=== PATIENT | male | born 1955 | race Caucasian/White ===

== ENCOUNTER 2018-07-25 15:08 | Inpatient (IN) ==
[2018-07-25 14:20] LABS: Basophils # 0.1 10*3/uL (0.0-0.2); Basophils % 0.3 % (0.0-0.8); Eosinophils # 0.1 10*3/uL (0.0-0.87); Eosinophils % 0.4 % (0.00-10.9); Hematocrit 40.1 VOL% (42.0-52.0); Hemoglobin 12.7 GM/DL (14.0-18.0); Immature Granulocytes % 1.7 %; Immature Granulocytes Absolute 0.34 #; Lymphocytes # 2.7 10*3/uL (1.4-4.0); Lymphocytes % 13.1 % (21.2-54.2); Mean Corpuscular HGB Conc 31.7 GM/DL (32-36); Mean Corpuscular Hemoglobin 31 PG (27-34); Mean Corpuscular Volume 96.2 FL (87-102); Mean Platelet Volume 11.5 FL (9.6-12.0); Monocytes # 1.8 10*3/uL (0.11-0.8); Monocytes % 8.9 % (1.7-12.7); Neutrophils # 15.4 10*3/uL (1.4-7.4); Neutrophils % 75.6 % (38.7-73.9); Platelet Count 236 T/CUMM (130-400); Red Blood Count 4.17 MC/CUMM (3.8-5.5); Red Cell Distribution Width 13.2 % (9.3-17.3); White Blood Count 20.4 T/CUMM (4-12)
[2018-07-25] MEDS: NOREPINEPHRINE 4 MG in SODIUM CHLORIDE 0.9% 242 ML IV PRN (14:30)
[2018-07-25 14:44] LABS: Albumin 2.3 G/DL (3.4-5.0); Bilirubin,Total 1.4 MG/DL (0.2-1.0); CKMB % 4.3 %; Calcium 7.9 MG/DL (8.5-10.1); Osmolality,Calculated 281.8 MOS/KG (273-304); Thyroid Stimulating Hormone 3.94 uIU/ml (0.358-3.74)
[~2018-07-25 15:08] MED LIST: ACETAMINOPHEN 325 MG TABLET PO PRN; ALUMINUM/MAGNES/SIMETH MAX STR 30 ML UDCUP PO PRN; BISACODYL 5 MG TABLET PO PRN; BIVALIRUDIN 250 MG VIAL IV ONE; D5W IV ONE; DOCUSATE SODIUM 100 MG CAPSULE PO PRN; HEPARIN 25000 UNIT/500 ML IV ONE; LIDOCAINE 1% 20 ML VIAL ONE; MAGNESIUM SULF RIDER 2 GM in PREMIX 1 EACH IV PRN; MAGNESIUM SULF RIDER 4 GM in PREMIX 1 EACH IV PRN; MIDAZOLAM 2 MG/2 ML VIAL ONE; NICOTINE 21 MG/24 HR PATCH TRANSDERM PRN; NOREPINEPHRINE 4 MG/4 ML VIAL IV ONE; ONDANSETRON 4 MG/2 ML VIAL IV PRN; POTASSIUM CHLORIDE 20 MEQ TABLET PO PRN; SODIUM BICARBONATE 50 MEQ/50 ML VIAL IV ONE; ZALEPLON 5 MG CAPSULE PO PRN; diphenhydrAMINE CAP 25 MG CAPSULE PO PRN; fentaNYL 100 MCG/2 ML VIAL ONE; guaiFENesin/DM ER 600-30 MG TABLET PO PRN
[2018-07-25 16:58] LABS: Lymphocytes 14 % (20-55); Segmented Neutrophils 82 % (50-85); Total Cells Counted 100
[2018-07-25 16:59] LABS: Platelet Estimate Normal
[2018-07-25 17:00] LABS: Polychromasia Slight
[2018-07-25] MEDS: PANTOPRAZOLE 40 MG TABLET PO SCH (17:10)
[2018-07-25] MEDS: PIPERACILLIN/TAZOBACTAM 3,375 MG in SODIUM CHLORIDE 0.9% 100 ML IV SCH (17:32)
[2018-07-25] MEDS: ENOXAPARIN 40 MG/0.4 ML SYRINGE SUBCUT SCH (17:32)
[2018-07-25 18:10] LABS: CKMB % 4.8 %
[2018-07-25 18:16] LABS: Troponin I 13.4 NG/ML (0.00-0.045)
[2018-07-25 20:25] LABS: CKMB % 4.8 %
[2018-07-25 20:29] LABS: Troponin I 12.6 NG/ML (0.00-0.045)
[2018-07-25] MEDS ORDERED: SODIUM CHLORIDE 0.9% 1,000 ML IV SCH (20:45)
[2018-07-25] MEDS: ATORVASTATIN 40 MG TABLET PO SCH (21:32)
[2018-07-25] MEDS: VANCOMYCIN INJ 1,000 MG in SODIUM CHLORIDE 0.9% 250 ML IV SCH (21:32)
[2018-07-25] MEDS: MORPHINE 4 MG/1 ML VIAL IV PRN (22:31)
[2018-07-25 22:32] LABS: Apearance,Urine Slightly Hazy (Clear); Bilirubin,Urine Negative (Negative); Blood, Urine Negative (Negative); Glucose,Urine (UA) 50 mg/dL (Negative); Ketones,Urine 5 mg/dL (Negative); Nitrite,Urine Negative (Negative); Protein,Urine 100 MG/DL; RBC,Urine 76 /HPF (0-4); Sperm,Urine Few /HPF (Negative); Squamous Epithelial Cell,Urine Occasional /HPF (0-10); Urine Color Amber (Yellow); Urine Specific Gravity > 1.060 (1.001-1.035)
[2018-07-25 22:58] LABS: Barbiturates Screen,Urine Negative (Negative); Benzodiazepines Screen,Urine Negative (Negative); Cannabinoid Screen,Urine Negative (Negative); Opiate Screen,Urine Negative (Negative); Phencyclidine Screen,Urine Negative (Negative)
[2018-07-26] MEDS ORDERED: NITROGLYCERIN SL 0.4 MG TABLET SL ONE ×2 (00:02→00:04)
[2018-07-26] MEDS ORDERED: FUROSEMIDE 40 MG/4 ML VIAL IV ONE ×2 (00:02→01:13)
[2018-07-26] MEDS ORDERED: FUROSEMIDE 100 MG/10 ML VIAL ONE (00:04)
[2018-07-26 00:39] LABS: ABG Base Excess -2.5 MMOL/L (-2.5-2.5); ABG HCO3 22.3 MMOL/L (20-26); ABG Oxygen Saturation 94.9 % (95-100); ABG PH 7.443 (7.35-7.45); ABG PO2 74.6 MM HG (80-95)
[2018-07-26] MEDS: PIPERACILLIN/TAZOBACTAM 3,375 MG in SODIUM CHLORIDE 0.9% 100 ML IV SCH ×3 (01:07→19:32)
[2018-07-26] MEDS ORDERED: KETOROLAC 30 MG/1 ML VIAL IV ONE (02:15)
[2018-07-26] MEDS ORDERED: MEPERIDINE 25 MG/1 ML VIAL IV ONE ×2 (02:16)
[2018-07-26] MEDS ORDERED: ALPRAZolam 0.5 MG TABLET PO ONE (02:16)
[2018-07-26 03:44] LABS: Osmolality,Calculated 280.5 MOS/KG (273-304); Potassium 4.7 MMOL/L (3.5-5.1); Risk Ratio 4.48; VLDL CHOLESTEROL 22.2 MG/DL
[2018-07-26 03:54] LABS: Basophils % 0.1 % (0.0-0.8); Hematocrit 38.4 VOL% (42.0-52.0); Hemoglobin 12.4 GM/DL (14.0-18.0); Immature Granulocytes % 1.2 %; Immature Granulocytes Absolute 0.24 #; Lymphocytes # 2.1 10*3/uL (1.4-4.0); Lymphocytes % 10.3 % (21.2-54.2); Mean Corpuscular HGB Conc 32.3 GM/DL (32-36); Mean Corpuscular Hemoglobin 30 PG (27-34); Mean Corpuscular Volume 94.1 FL (87-102); Mean Platelet Volume 12.3 FL (9.6-12.0); Monocytes % 9.5 % (1.7-12.7); Neutrophils # 16.2 10*3/uL (1.4-7.4); Neutrophils % 78.9 % (38.7-73.9); Platelet Count 240 T/CUMM (130-400); Red Blood Count 4.08 MC/CUMM (3.8-5.5); Red Cell Distribution Width 13.4 % (9.3-17.3); White Blood Count 20.6 T/CUMM (4-12)
[2018-07-26 04:28] LABS: Anisocytosis 1+; Band Neutrophils 2 % (0-10); Lymphocytes 7 % (20-55); Ovalocytes Few; Platelet Estimate Adequate; Segmented Neutrophils 87 % (50-85); Total Cells Counted 100
[2018-07-26 04:29] LABS: Smudge Cells Few
[2018-07-26] MEDS ORDERED: ALPRAZolam 0.5 MG TABLET PO PRN (08:12)
[2018-07-26 08:44] LABS: CKMB % 5.3 %
[2018-07-26 08:47] LABS: Troponin I 15.3 NG/ML (0.00-0.045)
[2018-07-26] MEDS ORDERED: ASPIRIN EC 325 MG TABLET PO SCH (09:00)
[2018-07-26] MEDS ORDERED: ASPIRIN EC 81 MG TABLET PO SCH (09:00)
[2018-07-26] MEDS: PANTOPRAZOLE 40 MG TABLET PO SCH (09:10)
[2018-07-26] MEDS: MEPERIDINE 25 MG/1 ML VIAL IV PRN ×2 (09:20→15:10)
[2018-07-26] MEDS ORDERED: DIGOXIN 0.5 MG/2 ML AMP IV ONE (11:33)
[2018-07-26] MEDS: NOREPINEPHRINE 4 MG in SODIUM CHLORIDE 0.9% 242 ML IV PRN (11:48)
[2018-07-26 12:09] LABS: Basophils # 0.1 10*3/uL (0.0-0.2); Basophils % 0.3 % (0.0-0.8); Eosinophils % 0.1 % (0.00-10.9); Hematocrit 38.5 VOL% (42.0-52.0); Hemoglobin 12.1 GM/DL (14.0-18.0); Immature Granulocytes % 1.3 %; Immature Granulocytes Absolute 0.34 #; Lymphocytes # 3.8 10*3/uL (1.4-4.0); Mean Corpuscular HGB Conc 31.4 GM/DL (32-36); Mean Corpuscular Hemoglobin 31 PG (27-34); Mean Platelet Volume 12.2 FL (9.6-12.0); Monocytes # 2.7 10*3/uL (0.11-0.8); Monocytes % 9.9 % (1.7-12.7); Neutrophils # 19.9 10*3/uL (1.4-7.4); Neutrophils % 74.4 % (38.7-73.9); Platelet Count 281 T/CUMM (130-400); Red Blood Count 3.97 MC/CUMM (3.8-5.5); Red Cell Distribution Width 13.6 % (9.3-17.3); White Blood Count 26.8 T/CUMM (4-12)
[2018-07-26 12:32] LABS: Band Neutrophils 9 % (0-10); Lymphocytes 16 % (20-55); Segmented Neutrophils 69 % (50-85); Total Cells Counted 100
[2018-07-26 12:33] LABS: Platelet Estimate Normal
[2018-07-26 12:35] LABS: Anisocytosis 1+; Atypical Lymphocytes Few; Macrocytosis Slight
[2018-07-26] MEDS ORDERED: SODIUM CHLORIDE 0.9% 1,000 ML IV SCH (13:00)
[2018-07-26] MEDS: MORPHINE 4 MG/1 ML VIAL IV PRN (13:09)
[2018-07-26 16:22] LABS: CKMB % 5.6 %
[2018-07-26] MEDS ORDERED: AMIODARONE 150 MG/3 ML VIAL ONE ×2 (16:22→17:56)
[2018-07-26] MEDS ORDERED: SODIUM CHLORIDE 0.9% 100 ML IV ONE ×2 (16:24→17:56)
[2018-07-26 16:26] LABS: Troponin I 14.6 NG/ML (0.00-0.045)
[2018-07-26] MEDS ORDERED: AMIODARONE INJ 150 MG in DEXTROSE 5% 100 ML IV ONE ×2 (16:32→17:55)
[2018-07-26] MEDS ORDERED: PHENYLEPHRINE INJ 160 MG in SODIUM CHLORIDE 0.9% 234 ML IV PRN (17:00)
[2018-07-26] MEDS ORDERED: AMIODARONE INJ 450 MG in DEXTROSE 5% 241 ML IV SCH ×2 (17:00→22:42)
[2018-07-26] MEDS: ENOXAPARIN 40 MG/0.4 ML SYRINGE SUBCUT SCH (19:35)
[2018-07-26 23:18] VITALS: BP 99/63
[2018-07-27] MEDS: ATORVASTATIN 40 MG TABLET PO SCH (00:19)
[2018-07-27] MEDS: VANCOMYCIN INJ 1,000 MG in SODIUM CHLORIDE 0.9% 250 ML IV SCH (00:19)
== END 2018-07-26 22:50 | disposition hospice, home (50) | DRG 280 ==
LOC: N.OR 15:08 → N.CL 15:08 → N.SDSINP 15:13 → EDSDCBED 17:02 → N.CC 17:02 → N.CL 07-26 22:50 → UNDODEPSDC 07-29 09:43
PROVIDERS: ADMIT Internal Medicine Cardiovascular Disease; ATTEND Internal Medicine Cardiovascular Disease
PROC: CLCCHCL (ICD-10-PCS; 2018-07-25 14:45)